=== PATIENT | male | born 1995 | race Two or more races ===

== ENCOUNTER 2021-10-09 08:02 | Inpatient (IN) | payer MEDICAID ==
[~2021-10-09] VITALS: Ht 180.3 cm; Wt 83.5 kg
[2021-10-09 08:36] LABS: BASOPHILS % (AUTO) 0.4 % (0.0-2.0); EOSINOPHILS % (AUTO) 0.7 % (1.0-6.0); HEMATOCRIT 41.5 % (41-53); HEMOGLOBIN 14.1 g/dL (13.5-17.5); LYMPHOCYTES % (AUTO) 12.1 % (22.0-44.0); MEAN CORPUSCULAR HEMOGLOBIN 28.2 pg (26.0-34.0); MEAN CORPUSCULAR HGB CONC 33.9 G/dL (31.0-37.0); MEAN CORPUSCULAR VOLUME 83 fL (80-100); MONOCYTES # (AUTO) 0.6 K/uL (0.1-1.0); MONOCYTES % (AUTO) 7.7 % (2.0-9.0); NEUTROPHILS # (AUTO) 6.7 K/uL (1.8-7.7); NEUTROPHILS % (AUTO) 79.1 % (40.0-70.0); PLATELET COUNT (AUTO) 201 K/uL (150-450); RED BLOOD CELL COUNT(AUTO) 4.98 MIL/uL (4.50-5.90); RED CELL DISTRIBUTION WIDTH 13.5 % (11.5-14.5)
[2021-10-09 08:48] LABS: ANION GAP 17 mmol/L (8-16); CALCIUM, TOTAL 9.1 mg/dL (8.8-10.5); CARBON DIOXIDE 19 mmol/L (22-29); CHLORIDE 101 mmol/L (98-107); CREATININE 1.06 mg/dL (0.60-1.30); GLUCOSE,RANDOM 69 mg/dL (70-110); POTASSIUM 3.4 mmol/L (3.5-5.1); SODIUM SERUM 137 mmol/L (136-145); UREA NITROGEN, BLOOD 19 mg/dL (7-18)
[2021-10-09 08:49] LABS: GLOMERULAR FILTR. RATE CALC > 60 mL/min (>60)
[2021-10-09 08:54] LABS: ALANINE AMINOTRANSFERASE 57 U/L (12-78); ALBUMIN 3.9 g/dL (3.4-5.0); ALKALINE PHOSPHATASE 59 U/L (46-116); ASPARTATE AMINOTRANSFERASE 167 U/L (15-37); BILIRUBIN,TOTAL 4.1 mg/dL (0.1-1.0); TOTAL PROTEIN, SERUM 7.1 g/dL (6.4-8.2)
[2021-10-09] MEDS ORDERED: HALOPERIDOL 5 MG TABLET PO ONE (10:30)
[2021-10-09] MEDS ORDERED: LORazepam 2 MG TABLET PO ONE (10:30)
[2021-10-09] MEDS ORDERED: ZOLPIDEM TARTRATE 10 MG TABLET PO PRN (10:45)
[2021-10-09] MEDS ORDERED: OLANZapine 5 MG RAPDIS TABLET PO PRN (10:45)
[2021-10-09] MEDS ORDERED: LORazepam 2 MG TABLET PO PRN (10:45)
[2021-10-09] MEDS ORDERED: DiphenhydrAMINE HCL 50 MG/ML VIAL IM ONE (12:45)
[2021-10-09] MEDS ORDERED: HALOPERIDOL LACTATE 5 MG/ML VIAL IM ONE (12:45)
[2021-10-09] MEDS ORDERED: DIAZEPAM 5 MG/ML 2 ML SYRINGE IM ONE (12:45)
[2021-10-09 15:09] LABS: COVID AG,FIA SOURCE NASAL SWAB
[2021-10-09] MEDS ORDERED: OLANZapine 5 MG RAPDIS TABLET PO ONE (21:15)
[2021-10-10 02:15] VITALS: BP 110/72
[2021-10-10] MEDS: NALTREXONE HCL 50 MG TABLET PO SCH (08:58)
[2021-10-10] MEDS: OMEGA-3/DHA/EPA/FISH OIL 1,000 MG CAPSULE PO SCH (08:58)
[2021-10-10] MEDS ORDERED: ACETAMINOPHEN 325 MG TABLET PO PRN (10:00)
[2021-10-10] MEDS ORDERED: TUBERCULIN, PURIFIED PROTEIN DERIVATIVE 5 TU/0.1 ML SYRINGE ID ONE (10:00)
[2021-10-10] MEDS ORDERED: GuaiFENesin/D-METHORPHAN [SUGAR-FREE] 200-20MG/10 ML SYRUP UDCUP PO PRN (10:00)
[2021-10-10] MEDS ORDERED: HydrOXYzine PAMOATE 50 MG CAPSULE PO PRN (10:00)
[2021-10-10] MEDS ORDERED: MAGNESIUM HYDROXIDE SUSPENSION 30 ML UDCUP PO PRN (10:00)
[2021-10-10] MEDS ORDERED: LOPERAMIDE HCL 2 MG CAPSULE PO PRN (10:00)
[2021-10-10] MEDS ORDERED: PROMETHAZINE HCL 25 MG TABLET PO PRN (10:00)
[2021-10-10] MEDS ORDERED: MAG HYDROX/AL HYDROX/SIMETH ES 30 ML SUSPENSION UDCUP PO PRN (10:00)
[2021-10-10] MEDS ORDERED: POTASSIUM CHLORIDE 20 MEQ ER TABLET PO ONE ×2 (13:30→21:00)
[2021-10-10 16:15] VITALS: BP 99/58
[2021-10-10] MEDS: THIAMINE 100 MG TABLET PO SCH (16:24)
[2021-10-10] MEDS: MELATONIN 5 MG TABLET PO SCH (20:11)
[2021-10-10] MEDS ORDERED: OLANZapine 5 MG RAPDIS TABLET PO SCH (21:00)
[2021-10-11 06:06] LABS: HEPATITIS C AB (EIA) 0.2 s/co ratio (0.0-0.9)
[2021-10-11 07:43] LABS: HEMOGLOBIN A1C 4.9 % (3.8-5.6)
[2021-10-11 07:53] LABS: CHOL/HDL RATIO 3.3 (4.2-7.3); FREE T4 (FREE THYROXINE) 1.38 ng/dL (0.76-1.46); POTASSIUM 3.9 mmol/L (3.5-5.1)
[2021-10-11] MEDS: FOLIC ACID 1 MG TABLET PO SCH (08:56)
[2021-10-11] MEDS: THIAMINE 100 MG TABLET PO SCH ×2 (08:56→16:26)
[2021-10-11] MEDS: NALTREXONE HCL 50 MG TABLET PO SCH (08:56)
[2021-10-11] MEDS: MULTIVITAMINS WITH MINERALS, THERAPEUTIC TABLET PO SCH (08:56)
[2021-10-11] MEDS: OMEGA-3/DHA/EPA/FISH OIL 1,000 MG CAPSULE PO SCH (08:56)
[2021-10-11 16:23] VITALS: BP 122/69
[2021-10-11] MEDS: MELATONIN 5 MG TABLET PO SCH (20:08)
[2021-10-11] MEDS: OLANZapine 10 MG RAPDIS TABLET PO SCH (20:08)
[2021-10-12] MEDS: OMEGA-3/DHA/EPA/FISH OIL 1,000 MG CAPSULE PO SCH (08:52)
[2021-10-12] MEDS: FOLIC ACID 1 MG TABLET PO SCH (08:52)
[2021-10-12] MEDS: NALTREXONE HCL 50 MG TABLET PO SCH (08:52)
[2021-10-12] MEDS: THIAMINE 100 MG TABLET PO SCH ×2 (08:52→16:15)
[2021-10-12] MEDS: MULTIVITAMINS WITH MINERALS, THERAPEUTIC TABLET PO SCH (08:52)
[2021-10-12 16:00] VITALS: BP 110/65
[2021-10-12] MEDS ORDERED: MELA5TAB40 PO (16:22)
[2021-10-12] MEDS ORDERED: OLAN10TA26 PO (16:22)
[2021-10-12] MEDS ORDERED: OMEG-108 PO (16:22)
[2021-10-12] MEDS ORDERED: NALT50TA PO (16:22)
[2021-10-12] MEDS: OLANZapine 10 MG RAPDIS TABLET PO SCH (21:03)
[2021-10-12] MEDS: MELATONIN 5 MG TABLET PO SCH (21:03)
[2021-10-13 08:09] LABS: ALANINE AMINOTRANSFERASE 68 U/L (12-78); ALBUMIN 3.3 g/dL (3.4-5.0); ALKALINE PHOSPHATASE 59 U/L (46-116); ANION GAP 7 mmol/L (8-16); ASPARTATE AMINOTRANSFERASE 77 U/L (15-37); BILIRUBIN,TOTAL 0.6 mg/dL (0.1-1.0); CARBON DIOXIDE 27 mmol/L (22-29); CHLORIDE 108 mmol/L (98-107); CREATININE 0.96 mg/dL (0.60-1.30); GLOMERULAR FILTR. RATE CALC > 60 mL/min (>60); GLUCOSE,RANDOM 102 mg/dL (70-110); POTASSIUM 3.8 mmol/L (3.5-5.1); SODIUM SERUM 142 mmol/L (136-145); TOTAL PROTEIN, SERUM 6.7 g/dL (6.4-8.2); UREA NITROGEN, BLOOD 9 mg/dL (7-18)
[2021-10-13] MEDS: THIAMINE 100 MG TABLET PO SCH (09:10)
[2021-10-13] MEDS: FOLIC ACID 1 MG TABLET PO SCH (09:10)
[2021-10-13] MEDS: OMEGA-3/DHA/EPA/FISH OIL 1,000 MG CAPSULE PO SCH (09:10)
[2021-10-13] MEDS: MULTIVITAMINS WITH MINERALS, THERAPEUTIC TABLET PO SCH (09:10)
[2021-10-13] MEDS: NALTREXONE HCL 50 MG TABLET PO SCH (09:10)
[2021-10-13 14:41] LABS: COVID AG,FIA SOURCE NASAL SWAB
[2021-11-10] MEDS ORDERED: PALIPERIDONE PALMITATE 234 MG/1.5 ML SYRINGE IM SCH (09:00)
== END 2021-10-13 14:30 | disposition home or self-care (01) | DRG 750 ==
LOC: EMS 08:02 → 3EI 10:41
PROVIDERS: ADMIT Psychiatry & Neurology Psychiatry; ATTEND Psychiatry & Neurology Psychiatry
DX: F25.9 Schizoaffective disorder, unspecified (principal); K76.89 Other specified diseases of liver; Z91.19 Patient's noncompliance with other medical treatment and regimen; Z20.822 Contact with and (suspected) exposure to COVID-19; Z59.9 Problem related to housing and economic circumstances, unspecified
CPT/HCPCS: 80053; 80061; 80074; 83036; 84132; 84439; 85025; 99285; G0480; J1200; J1630; Q9967

== ENCOUNTER 2022-08-02 12:50 | Inpatient (IN) | payer MEDICAID ==
[~2022-08-02] VITALS: Ht 188 cm; Wt 89.5 kg
[~2022-08-02 12:50] MED LIST: MELA5TAB40 PO; NALT50TA PO; OLAN10TA26 PO; OMEG-135 PO
[2022-08-02] MEDS ORDERED: HALOPERIDOL LACTATE 5 MG/ML VIAL IM ONE (14:30)
[2022-08-02] MEDS ORDERED: LORazepam 2 MG/ML VIAL IM ONE (14:30)
[2022-08-02] MEDS ORDERED: DiphenhydrAMINE HCL 50 MG/ML VIAL IM ONE (14:30)
[2022-08-02 15:19] LABS: BASOPHILS % (AUTO) 0.4 % (0.0-2.0); EOSINOPHILS % (AUTO) 0.4 % (1.0-6.0); HEMATOCRIT 41.6 % (41-53); HEMOGLOBIN 14.1 g/dL (13.5-17.5); LYMPHOCYTES # (AUTO) 1.2 K/uL (1.0-4.8); LYMPHOCYTES % (AUTO) 13.8 % (22.0-44.0); MEAN CORPUSCULAR HEMOGLOBIN 28.1 pg (26.0-34.0); MEAN CORPUSCULAR HGB CONC 33.8 G/dL (31.0-37.0); MEAN CORPUSCULAR VOLUME 83 fL (80-100); MONOCYTES # (AUTO) 0.8 K/uL (0.1-1.0); MONOCYTES % (AUTO) 9.9 % (2.0-9.0); NEUTROPHILS # (AUTO) 6.4 K/uL (1.8-7.7); NEUTROPHILS % (AUTO) 75.5 % (40.0-70.0); PLATELET COUNT (AUTO) 247 K/uL (150-450); RED BLOOD CELL COUNT(AUTO) 5.01 MIL/uL (4.50-5.90); RED CELL DISTRIBUTION WIDTH 13.2 % (11.5-14.5)
[2022-08-02 15:36] LABS: COVID AG,FIA SOURCE NASOPHARYNGEAL
[2022-08-02 15:40] LABS: ALANINE AMINOTRANSFERASE 65 U/L (12-78); ALBUMIN 4.3 g/dL (3.4-5.0); ALKALINE PHOSPHATASE 69 U/L (46-116); ANION GAP 19 mmol/L (8-16); ASPARTATE AMINOTRANSFERASE 178 U/L (15-37); BILIRUBIN,TOTAL 2.3 mg/dL (0.1-1.0); CALCIUM, TOTAL 9.5 mg/dL (8.8-10.5); CARBON DIOXIDE 17 mmol/L (22-29); CHLORIDE 104 mmol/L (98-107); CREATININE 0.91 mg/dL (0.60-1.30); GLOMERULAR FILTR. RATE CALC > 60 mL/min (>60); GLUCOSE,RANDOM 89 mg/dL (70-110); SODIUM SERUM 140 mmol/L (136-145)
[2022-08-02 15:43] LABS: POTASSIUM 2.9 mmol/L (3.5-5.1)
[2022-08-02] MEDS ORDERED: POTASSIUM CHLORIDE 20 MEQ ER TABLET PO ONE (16:00)
[2022-08-02] MEDS ORDERED: HALOPERIDOL 5 MG TABLET PO PRN (16:30)
[2022-08-02 20:44] VITALS: BP 107/64
[2022-08-02] MEDS ORDERED: CloNIDine HCL 0.1 MG TABLET PO PRN (23:15)
[2022-08-02] MEDS ORDERED: ALBUTEROL SULFATE HFA 90 MCG/PUFF 8 GM INHALER IH PRN (23:15)
[2022-08-02] MEDS ORDERED: MAGNESIUM HYDROXIDE SUSPENSION 30 ML UDCUP PO PRN (23:15)
[2022-08-02] MEDS ORDERED: OMEPRAZOLE 20 MG CAPSULE PO PRN (23:15)
[2022-08-02] MEDS ORDERED: LOPERAMIDE HCL 2 MG CAPSULE PO PRN (23:15)
[2022-08-02] MEDS ORDERED: DOCUSATE SODIUM 100 MG CAPSULE PO PRN (23:15)
[2022-08-02] MEDS ORDERED: MAG HYDROX/AL HYDROX/SIMETH ES 30 ML SUSPENSION UDCUP PO PRN (23:15)
[2022-08-02] MEDS ORDERED: BACITRACIN 28 GM OINTMENT TP PRN (23:15)
[2022-08-02] MEDS ORDERED: IBUPROFEN 600 MG TABLET PO PRN (23:15)
[2022-08-02] MEDS ORDERED: ONDANSETRON HCL 4 MG TABLET PO PRN (23:15)
[2022-08-02] MEDS ORDERED: PETROLATUM,WHITE 28 GM JELLY TP PRN (23:15)
[2022-08-03 08:24] VITALS: BP 114/71
[2022-08-03 12:53] LABS: APPEARANCE,URINE TURBID (CLEAR); GLUCOSE, URINE (UA) NEGATIVE (NEGATIVE); KETONES,URINE =>150 mg/dL (NEGATIVE); LEUKOCYTE ESTERASE ,URINE NEGATIVE (NEGATIVE); NITRATE,URINE NEGATIVE (NEGATIVE); OCCULT BLOOD,URINE NEGATIVE (NEGATIVE); PH,URINE 6.5 (5.0-8.0); PROTEIN,URINE 30-70 mg/dL (NEGATIVE); SPECIFIC GRAVITIY, URINE 1.031 (1.003-1.030)
[2022-08-03 12:54] LABS: BILIRUBIN,URINE SMALL (NEGATIVE)
[2022-08-03 13:54] LABS: AMPHET/METH SCREEN,URINE NEGATIVE (NEGATIVE); BARBITURATE SCREEN, URINE NEGATIVE (NEGATIVE); BENZODIAZEPINES SCREEN,URINE NEGATIVE (NEGATIVE); CANNABINOID SCREEN,URINE NEGATIVE (NEGATIVE); COCAINE SCREEN,URINE NEGATIVE (NEGATIVE); METHADONE SCREEN, URINE NEGATIVE (NEGATIVE); OPIATE SCREEN,URINE NEGATIVE (NEGATIVE); PHENCYCLIDINE SCREEN,URINE NEGATIVE (NEGATIVE)
[2022-08-03] MEDS: OLANZapine 7.5 MG TABLET PO SCH (20:04)
[2022-08-03] MEDS: ZOLPIDEM TARTRATE 10 MG TABLET PO PRN (20:04)
[2022-08-04 08:05] VITALS: BP 116/85
[2022-08-04] MEDS: LORazepam 2 MG TABLET PO PRN ×2 (08:19→18:02)
[2022-08-04] MEDS: METHYL SALICYLATE/MENTHOL 85 GM CREAM TP PRN (11:26)
[2022-08-04] MEDS: ACETAMINOPHEN 325 MG TABLET PO PRN (18:02)
[2022-08-04] MEDS: ZOLPIDEM TARTRATE 10 MG TABLET PO PRN (20:37)
[2022-08-04] MEDS: OLANZapine 7.5 MG TABLET PO SCH (20:37)
[2022-08-05] MEDS: LORazepam 2 MG TABLET PO PRN ×2 (07:48→20:24)
[2022-08-05] MEDS: ACETAMINOPHEN 325 MG TABLET PO PRN (19:08)
[2022-08-05] MEDS: OLANZapine 7.5 MG TABLET PO SCH (20:10)
[2022-08-05] MEDS: ZOLPIDEM TARTRATE 10 MG TABLET PO PRN (20:24)
[2022-08-06] MEDS: LORazepam 2 MG TABLET PO PRN ×2 (08:05→18:28)
[2022-08-06] MEDS: METHYL SALICYLATE/MENTHOL 85 GM CREAM TP PRN (17:03)
[2022-08-06] MEDS: ZOLPIDEM TARTRATE 10 MG TABLET PO PRN (20:11)
[2022-08-06] MEDS: OLANZapine 7.5 MG TABLET PO SCH (20:11)
[2022-08-07] MEDS: LORazepam 2 MG TABLET PO PRN ×2 (11:13→18:44)
[2022-08-07] MEDS ORDERED: OLAN7.5T22 PO (12:04)
[2022-08-07] MEDS: ZOLPIDEM TARTRATE 10 MG TABLET PO PRN (20:30)
[2022-08-07] MEDS: OLANZapine 7.5 MG TABLET PO SCH (20:30)
[2022-08-08 08:42] LABS: ALANINE AMINOTRANSFERASE 33 U/L (12-78); ALBUMIN 3.5 g/dL (3.4-5.0); ALKALINE PHOSPHATASE 51 U/L (46-116); ANION GAP 7 mmol/L (8-16); ASPARTATE AMINOTRANSFERASE 22 U/L (15-37); BILIRUBIN,TOTAL 0.5 mg/dL (0.1-1.0); CALCIUM, TOTAL 8.7 mg/dL (8.8-10.5); CARBON DIOXIDE 29 mmol/L (22-29); CHLORIDE 105 mmol/L (98-107); CREATININE 0.87 mg/dL (0.60-1.30); GLOMERULAR FILTR. RATE CALC > 60 mL/min (>60); GLUCOSE,RANDOM 95 mg/dL (70-110); POTASSIUM 4.2 mmol/L (3.5-5.1); SODIUM SERUM 141 mmol/L (136-145); TOTAL PROTEIN, SERUM 6.9 g/dL (6.4-8.2)
[2022-08-09 03:06] LABS: HEPATITIS C AB (EIA) Non Reactive (Non Reactive)
== END 2022-08-08 12:11 | disposition home or self-care (01) | DRG 750 ==
LOC: EMS 12:54 → B3A 17:03
PROVIDERS: ADMIT Psychiatry & Neurology Psychiatry; ATTEND Psychiatry & Neurology Psychiatry
DX: F20.9 Schizophrenia, unspecified (principal); R17 Unspecified jaundice; E87.6 Hypokalemia; F41.9 Anxiety disorder, unspecified; Z20.822 Contact with and (suspected) exposure to COVID-19; G47.00 Insomnia, unspecified; K21.9 Gastro-esophageal reflux disease without esophagitis; K59.00 Constipation, unspecified; Z78.1 Physical restraint status
CPT/HCPCS: 80053; 80074; 80307; 81003; 83735; 84132; 85025; 99291; G0480; J1200; J1630; J2060